=== PATIENT | male | born 1985 | race Caucasian/White ===

== ENCOUNTER 2018-03-31 11:09 | Emergency (ER) | payer OTHER ==
[2018-03-31 11:16] VITALS: RESP 16
[2018-03-31 11:17] VITALS: BMI 26.4
[2018-03-31] MEDS ORDERED: Amoxicillin-Clav 500-125 mg Tab PO STA (11:51)
[2018-03-31] MEDS ORDERED: Rabies Immune Globulin 150 INTLU/ML VIAL IM ONE (11:52)
[2018-03-31] MEDS ORDERED: Amoxicillin-Clav 250-125 mg Tab PO ONE (11:56)
--- NOTE | 2018-03-31 12:04 | ED PDOC ---
HPI: Skin/Bite Injury Time Seen by Provider: 03/31/18 11:23 Chief Complaint (Nursing): Bite History Per: Patient History/Exam Limitations: no limitations Additional Complaint(s): 32 yo M states that he was at a dog park in [facility] earlier today with his dog, his dog was playing with another dog whose produce department manager was present. He tried to break up a fight between both dogs and by doing so was bit on the R hand by the other dog. The produce department manager of the other dog left immediately and he was unable to obtain any information regarding the dog's vaccination or the produce department manager's contact information. He reports no pain, numbness, decrease in ROM. Has no other injury or complaints. He states that he was seen at [facility] earlier fishing vessel [employer] and was advised to come to the ER. Past Medical History Vital Signs: Last Vital Signs Temp 98.1 F 03/31/18 12:55 Pulse 75 03/31/18 12:55 Resp 16 03/31/18 12:55 BP 125/80 03/31/18 12:55 Pulse Ox 100 03/31/18 12:55 - Surgical History Surgical History: No Surg Hx - Family History Family History: States: No Known Family Hx - Immunization History Hx Tetanus Toxoid Vaccination: Yes (UTD) - Home Medications Home Medications: Ambulatory Orders Medication Instructions Recorded Amoxicillin/Potassium Clav 1 each PO BID #10 tablet 03/31/18 [Augmentin 500-125 Tablet] - Allergies Allergies/Adverse Reactions: Allergies Allergy/AdvReac Type Severity Reaction Status Date / Time No Known Allergies Allergy Verified 03/31/18 11:23 Review of Systems Constitutional: Negative for: Fever, Malaise Musculoskeletal: Negative for: Neck Pain, Arm Pain, Back Pain Skin: Positive for: Other (dog bite to the R hand). Negative for: Rash, Lesions Physical Exam - Reviewed Vital Signs Reviewed: Yes - Physical Exam Appears: Positive for: Well, Non-toxic, No Acute Distress Skin: Positive for: Normal Color, Warm, Dry. Negative for: Rash Pulses-Radial (R): 1+ Extremity: Positive for: Normal ROM, Capillary Refill (<2 sec), Other (+4 superficial puncture wounds, each <1 cm in size, to the dorsal R hand ). Negative for: Tenderness, Deformity Neurologic/Psych: Positive for: Alert, pamphlet distributor II-XII (intact), Oriented (x3). Negative for: Motor/Sensory Deficits - ECG O2 Sat by Pulse Oximetry: 98 Medical Decision Making Medical Decision Making: Plan : - XR R hand - patient refused - Augmentin 500 mg PO - Rabies vaccine IM - Rabies IG Wound irrigated with NS. Rabies IG infiltrated at the puncture wounds, the remaining IG given IM, clean dressing applied. Patient instructed to return to the ER on days 3, 7, and 14 to complete rabies vaccination without fail. Advised to take medication as prescribed. Return to the emergency room at any time for any new or worsening symptoms. Patient states he fully agrees with and understands discharge instructions. States that he agrees with the plan and disposition. Verbalized and repeated discharge instructions and plan. I have given the patient opportunity to ask any additional questions. Disposition - Clinical Impression Clinical Impression: Animal bite wound - Patient ED Disposition Is Patient to be Admitted: No Counseled Patient/Family Regarding: Diagnosis, Need For Followup, Rx Given - Disposition Disposition: Routine/Home Disposition Time: 12:00 Condition: STABLE Additional Instructions: Thank you for letting us take care of you today. You were treated for dog bite. The emergency medical care you received today was directed towards the acute presenting symptoms. Clean wound daily with regular soap and water. If you were prescribed any medication, please fill it and give as directed. It may take several days for your symptoms to resolve. Return to the Emergency Department at any time if symptoms worsen, do not improve, or if any other problems arise. Please return to the ER on the following dates to complete rabies vaccination : Day 3 04/03/18 Day 7 04/07/18 Day 14 04/14/18 Thank you for allowing the [facility] team to be part of your care today. Prescriptions: Amoxicillin/Potassium Clav [Augmentin 500-125 Tablet] 1 each PO BID #10 tablet Instructions: Animal Bites (DC) Forms: [facility] ([place]) - PA / DIRECTOR OF HEMOPHILIA / Resident Statement MD/DO has reviewed & agrees with the documentation as recorded.
[2018-03-31 12:56] VITALS: BP 125/80; PULSE 75; TEMP 98.1
[2018-03-31 16:05] VITALS: O2SAT 98
== END 2018-03-31 12:56 | disposition home or self-care (01) ==
LOC: H.ER 11:09
DX: S61.451A Open bite of right hand, initial encounter (principal); W54.0XXA Bitten by dog, initial encounter; Y92.830 Public park as the place of occurrence of the external cause; Z23 Encounter for immunization

== ENCOUNTER 2018-04-03 09:38 | Emergency (ER) | payer OTHER ==
[2018-04-03 09:38] VITALS: BMI 26.4
[2018-04-03 09:51] VITALS: BP 120/87; PULSE 78; TEMP 97; O2SAT 97
--- NOTE | 2018-04-03 10:20 | ED PDOC ---
HPI: General Adult Time Seen by Provider: 04/03/18 09:56 Chief Complaint (Nursing): Rabies Vaccine Series Chief Complaint (Provider): Rabies Vaccine Series History Per: Patient History/Exam Limitations: no limitations Current Symptoms Are (Timing): Still Present Recently: Seen In ED Additional Complaint(s): 32 year old male presents to the ED for second rabies vaccine s/p dog bite to right hand. Patient was treated here 3 days ago (03/31/2018) and has been compliant with antibiotics given. Denies fever, discharge, pain and swelling to the area. PMD: none provided Past Medical History Reviewed: Historical Data, Nursing Documentation, Vital Signs Vital Signs: Last Vital Signs Temp 97 F L 04/03/18 09:51 Pulse 78 04/03/18 09:51 Resp BP 120/87 04/03/18 09:51 Pulse Ox 97 04/03/18 10:26 - Medical History PMH: No Chronic Diseases - Surgical History Surgical History: Hernia Repair Other surgeries: shoulder - Family History Family History: States: Unknown Family Hx - Immunization History Hx Tetanus Toxoid Vaccination: Yes (UTD) - Home Medications Home Medications: Ambulatory Orders Medication Instructions Recorded Amoxicillin/Potassium Clav 1 each PO BID #10 tablet 03/31/18 [Augmentin 500-125 Tablet] - Allergies Allergies/Adverse Reactions: Allergies Allergy/AdvReac Type Severity Reaction Status Date / Time No Known Allergies Allergy Verified 03/31/18 11:23 Review of Systems ROS Statement: Except As Marked, All Systems Reviewed And Found Negative Constitutional: Negative for: Fever Musculoskeletal: Positive for: Other (right hand abrasions ) Physical Exam - Reviewed Nursing Documentation Reviewed: Yes Vital Signs Reviewed: Yes - Physical Exam Appears: Positive for: No Acute Distress Head Exam: Positive for: ATRAUMATIC, NORMAL INSPECTION, NORMOCEPHALIC Skin: Positive for: Normal Color, Warm, Dry Eye Exam: Positive for: EOMI, Normal appearance, PERRL Neck: Positive for: Normal, Painless ROM, Supple Cardiovascular/Chest: Positive for: Regular Rate, Rhythm. Negative for: Murmur Respiratory: Positive for: Normal Breath Sounds. Negative for: Wheezing, Respiratory Distress Gastrointestinal/Abdominal: Positive for: Normal Exam, Soft. Negative for: Tenderness Extremity: Positive for: Normal ROM, Other (hand is healing; superficial abrasions to right hand x 2.) Neurologic/Psych: Positive for: Alert, Oriented (x 3). Negative for: Motor/ Sensory Deficits - ECG O2 Sat by Pulse Oximetry: 97 (RA) Pulse Ox Interpretation: Normal Medical Decision Making Medical Decision Makin:57 Impression: second rabies vaccine Plan: --Rabies Vaccine 2.5 units IM ---- Scribe Attestation: Documented by Anahi Ji, acting as a scribe for Nohemy Damon MD Provider Scribe Attestation: All medical record entries made by the Scribe were at my direction and personally dictated by me. I have reviewed the chart and agree that the record accurately reflects my personal performance of the history, physical exam, medical decision making, and the department course for this patient. I have also personally directed, reviewed, and agree with the discharge instructions and disposition. Disposition - Clinical Impression Clinical Impression: Need for rabies vaccination - Disposition Disposition: Routine/Home Disposition Time: 10:41 Condition: STABLE Additional Instructions: RETURN ON DAY #7 FOR NEXT RABIES VACCINE. LUISITO MIRANDA, thank you for letting us take care of you today. Your provider was Nohemy Damon MD and you were treated for SECOND RABIES SHOT. The emergency medical care you received today was directed at your acute symptoms. If you were prescribed any medication, please fill it and take as directed. It may take several days for your symptoms to resolve. Return to the Emergency Department if your symptoms worsen, do not improve, or if you have any other problems. Please contact your doctor or call one of the physicians/clinics you have been referred to that are listed on the Patient Visit Information form that is included in your discharge packet. Bring any paperwork you were given at discharge with you along with any medications you are taking to your follow up visit. Our treatment cannot replace ongoing medical care by a primary care provider outside of the emergency department. Thank you for allowing the [facility] team to be part of your care today. If you had an X-Ray or CT scan: A Radiologist will review the ED reading if any change in treatment is needed we will contact you. If you had a blood, urine, or wound culture: It will take several days for the results, if any change in treatment is needed we will contact you. If you had an STI test: It will take 48 hours for the results. Please call after 1 week if you have not heard back. Instructions: Vaccines for Adults Forms: [facility] ([place])
== END 2018-04-03 11:00 | disposition home or self-care (01) ==
LOC: H.ER 09:38
DX: Z29.14 Encounter for prophylactic rabies immune globulin (principal)

== ENCOUNTER 2018-04-07 10:19 | Emergency (ER) | payer OTHER ==
[2018-04-07 10:19] VITALS: BMI 26.4
[2018-04-07 10:23] VITALS: BP 120/79; PULSE 75; RESP 20; TEMP 98.4
--- NOTE | 2018-04-07 11:05 | ED PDOC ---
HPI: General Adult Time Seen by Provider: 04/07/18 11:03 Chief Complaint (Nursing): Rabies Vaccine Series Chief Complaint (Provider): RABIES VACCINE History Per: Patient (32 Y/O MALE HERE FOR DAY 7 RABIES VACCINE. RIGHT HAND HEALING WELL. NO REACTION TO PREVIOUS INJECTIONS.) Past Medical History Reviewed: Historical Data, Nursing Documentation, Vital Signs Vital Signs: Last Vital Signs Temp 98.4 F 04/07/18 10:21 Pulse 75 04/07/18 10:41 Resp 20 04/07/18 10:41 BP 120/79 04/07/18 10:41 Pulse Ox 97 04/07/18 10:21 - Surgical History Surgical History: Hernia Repair - Family History Family History: States: Unknown Family Hx - Immunization History Hx Tetanus Toxoid Vaccination: Yes (UTD) - Home Medications Home Medications: Ambulatory Orders Medication Instructions Recorded Amoxicillin/Potassium Clav 1 each PO BID #10 tablet 03/31/18 [Augmentin 500-125 Tablet] - Allergies Allergies/Adverse Reactions: Allergies Allergy/AdvReac Type Severity Reaction Status Date / Time No Known Allergies Allergy Verified 03/31/18 11:23 Review of Systems ROS Statement: Except As Marked, All Systems Reviewed And Found Negative Physical Exam - Reviewed Nursing Documentation Reviewed: Yes Vital Signs Reviewed: Yes - Physical Exam Appears: Positive for: Well, Non-toxic, No Acute Distress Head Exam: Positive for: ATRAUMATIC, NORMAL INSPECTION, NORMOCEPHALIC Skin: Positive for: Normal Color (RIGHT HAND SMALL PUNCTATE WOUNDS DORSUM OF HAND HEALING WELL.), Warm Eye Exam: Positive for: EOMI, Normal appearance, PERRL ENT: Positive for: Normal ENT Inspection Neck: Positive for: Normal, Painless ROM Cardiovascular/Chest: Positive for: Regular Rate, Rhythm Respiratory: Positive for: CNT, Normal Breath Sounds Gastrointestinal/Abdominal: Positive for: Normal Exam, Soft Back: Positive for: Normal Inspection Extremity: Positive for: Normal ROM Neurologic/Psych: Positive for: Alert, Oriented - ECG O2 Sat by Pulse Oximetry: 97 - Progress ED Course And Treament: RABIES VACCINE 1 ML IM X 1 DOSE Disposition - Clinical Impression Clinical Impression: Need for rabies vaccination - Patient ED Disposition Is Patient to be Admitted: No - Disposition Disposition: Routine/Home Disposition Time: 11:05 Condition: FAIR Instructions: Rabies (DC)
[2018-04-07 12:07] VITALS: O2SAT 98
== END 2018-04-07 11:25 | disposition home or self-care (01) ==
LOC: H.ER 10:19
DX: Z29.14 Encounter for prophylactic rabies immune globulin (principal)

== ENCOUNTER 2018-04-14 09:57 | Emergency (ER) | payer OTHER ==
[2018-04-14 09:58] VITALS: BMI 26.4
[2018-04-14 10:10] VITALS: BP 119/80; PULSE 87; RESP 17; TEMP 98.7; O2SAT 96
--- NOTE | 2018-04-14 10:43 | ED PDOC ---
HPI: Skin/Bite Injury Time Seen by Provider: 04/14/18 10:14 Chief Complaint (Nursing): Bite Chief Complaint (Provider): Rabies Vaccine History Per: Patient Additional Complaint(s): 32 yo male, no PMH, Pt bit by dog on 03/31/18. Here for follow up prophylaxis - day 14. No redness, swelling or pain to injection site. Bite healing well. Past Medical History Reviewed: Nursing Documentation, Vital Signs Vital Signs: Last Vital Signs Temp 98.7 F 04/14/18 10:10 Pulse 87 04/14/18 10:10 Resp 17 04/14/18 10:10 BP 119/80 04/14/18 10:10 Pulse Ox 96 04/14/18 10:10 - Medical History PMH: No Chronic Diseases - Surgical History Surgical History: Hernia Repair - Family History Family History: States: Unknown Family Hx - Living Arrangements Living Arrangements: With Friends/Others - Social History Current smoker - smoking cessation education provided: No Alcohol: Social Drugs: Denies - Immunization History Hx Tetanus Toxoid Vaccination: Yes (UTD) Hx Influenza Vaccination: Yes Hx Pneumococcal Vaccination: No - Home Medications Home Medications: Ambulatory Orders Medication Instructions Recorded Amoxicillin/Potassium Clav 1 each PO BID #10 tablet 03/31/18 [Augmentin 500-125 Tablet] - Allergies Allergies/Adverse Reactions: Allergies Allergy/AdvReac Type Severity Reaction Status Date / Time No Known Allergies Allergy Verified 04/14/18 10:22 Review of Systems ROS Statement: Except As Marked, All Systems Reviewed And Found Negative Physical Exam - Reviewed Nursing Documentation Reviewed: Yes Vital Signs Reviewed: Yes - Physical Exam Appears: Positive for: Well, Non-toxic, No Acute Distress Head Exam: Positive for: ATRAUMATIC, NORMAL INSPECTION, NORMOCEPHALIC Skin: Positive for: Normal Color, Warm, DRY Eye Exam: Positive for: EOMI, Normal appearance, PERRL ENT: Positive for: Normal ENT Inspection Neck: Positive for: Normal, Painless ROM Cardiovascular/Chest: Positive for: Regular Rate, Rhythm Respiratory: Positive for: CNT, Normal Breath Sounds Gastrointestinal/Abdominal: Positive for: Normal Exam, Soft Back: Positive for: Normal Inspection Extremity: Positive for: Normal ROM Neurologic/Psych: Positive for: Alert, Oriented - ECG O2 Sat by Pulse Oximetry: 96 Medical Decision Making Medical Decision Making: Rabies vaccine administered Disposition - Clinical Impression Clinical Impression: Need for rabies vaccination - Patient ED Disposition Is Patient to be Admitted: No - Disposition Disposition: Routine/Home Disposition Time: 10:43 Condition: STABLE
== END 2018-04-14 11:11 | disposition home or self-care (01) ==
LOC: H.ER 09:57
DX: Z29.14 Encounter for prophylactic rabies immune globulin (principal); Z23 Encounter for immunization